=== PATIENT | female | born 1970 | race Caucasian/White ===

== ENCOUNTER 2018-03-27 10:59 | Day surgery (SDC) | payer OTHER ==
[2018-03-27] MEDS: BUPIVACAINE 0.25%/EPI (SDV) 30 ML INJ INJ
[2018-03-27] MEDS ORDERED: MIDAZOLAM 1 MG/ML 2 ML INJ IV (13:00)
[2018-03-27] MEDS ORDERED: FENTAnyl 50 MCG/ML VIAL IV ×3 (13:00)
[2018-03-27] MEDS ORDERED: LABETALOL HCL 20MG INJ IV (13:00)
[2018-03-27] MEDS ORDERED: DIPHENHYDRAMINE 50 MG INJ IV (13:00)
[2018-03-27] MEDS ORDERED: METOCLOPRAMIDE 10 MG INJ IV (13:00)
[2018-03-27] MEDS ORDERED: EPHEDrine SULFATE 50 MG/5 ML SYG IV (13:00)
[2018-03-27] MEDS ORDERED: OXYCODONE/ACETAMINOPHEN (5/325) TAB PO ×2 (13:00)
[2018-03-27] MEDS ORDERED: hydrALAzine 20 MG INJ IV (13:00)
[2018-03-27] MEDS: CEFAZOLIN 1 GM/50 ML (PMX) 50 ML IVPB (13:06)
[2018-03-27] MEDS: SOD CHLORIDE 0.9% 1,000 ML IV (13:06)
[2018-03-27] MEDS ORDERED: NEOSTIGMINE 3 MG/3 ML SYRINGE ×2 (13:09→13:56)
[2018-03-27] MEDS ORDERED: SUCCINYLCHOLINE CHLORIDE 100 MG/5 ML SYG IV (13:09)
[2018-03-27] MEDS ORDERED: METOCLOPRAMIDE 10 MG INJ (13:09)
[2018-03-27] MEDS ORDERED: LIDOCAINE 2% (SDV) 5 ML INJ (13:09)
[2018-03-27] MEDS ORDERED: ONDANSETRON 4 MG INJ (13:09)
[2018-03-27] MEDS ORDERED: MEPERIDINE 100 MG INJ (13:09)
[2018-03-27] MEDS ORDERED: ROCURONIUM 50 MG INJ (13:09)
[2018-03-27] MEDS ORDERED: GLYCOPYRROLATE 0.4 MG INJ ×2 (13:09→13:56)
[2018-03-27] MEDS ORDERED: PROPOFOL 20 ML (13:09)
[2018-03-27] MEDS ORDERED: CEFAZOLIN 1 GM INJ (13:09)
[2018-03-27] MEDS ORDERED: BUPIVACAINE 0.25%/EPI (MDV) 50 ML VIAL INJ (13:18)
[2018-03-27] MEDS ORDERED: ATROPINE 1 MG/10 ML SYRINGE (13:56)
[2018-03-27] MEDS ORDERED: ONDANSETRON 4 MG INJ IV (14:30)
[2018-03-27] MEDS ORDERED: IBUPROFEN 600 MG TAB PO (14:30)
[2018-03-27] MEDS ORDERED: traMADol 50 MG TAB PO (14:30)
[2018-03-27] MEDS ORDERED: KETOROLAC 30 MG INJ IV (14:30)
[2018-03-27] MEDS: ONDANSETRON 4 MG INJ IV (15:07)
[2018-03-27] MEDS: HYDROmorphONE 1 MG/5 ML IV SYRINGE IV ×2 (15:08→15:17)
[2018-03-27] MEDS: MEPERIDINE 25 MG INJ IV (15:26)
== END 2018-03-27 17:38 | disposition home or self-care (01) ==
LOC: SDS 10:59
DX: K80.10 Calculus of gallbladder with chronic cholecystitis without obstruction (principal); E66.9 Obesity, unspecified; M35.00 Sjogren syndrome, unspecified
CPT/HCPCS: 47562; 84703; 88304

== ENCOUNTER 2018-04-02 10:08 | Emergency (ER) | payer OTHER ==
[2018-04-02 12:05] LABS: ADD MAN DIFF? NO
[2018-04-02 12:09] LABS: BASOPHILS % 0.5 % (0.0-2.0); EOSINOPHILS # 0.2 10^3/ul (0.0-0.5); EOSINOPHILS % 2.2 % (0.0-7.0); HEMOGLOBIN 13.9 g/dl (12.0-16.0); LYMPHOCYTES # 2.1 10^3/ul (0.8-2.9); LYMPHOCYTES % 25.8 % (15.0-51.0); MEAN CORPUSCULAR HEMOGLOBIN 30.2 pg (29.0-33.0); MEAN CORPUSCULAR HGB CONC 33.1 g/dl (32.0-37.0); MEAN CORPUSCULAR VOLUME 91.1 fl (82.0-101.0); MEAN PLATELET VOLUME 10.6 fl (7.4-10.4); MONOCYTE # 0.5 10^3/ul (0.3-0.9); MONOCYTES % 5.9 % (0.0-11.0); NEUTROPHIL # 5.3 10^3/ul (1.6-7.5); NEUTROPHILS % 65.2 % (39.0-77.0); PLATELET COUNT 366 10^3/UL (140-415); RED BLOOD COUNT 4.61 10^6/ul (4.20-5.40); RED CELL DISTRIBUTION WIDTH 13.2 % (11.5-14.5)
[2018-04-02 12:09] LABS: WHITE BLOOD COUNT 8.1 10^3/ul (4.8-10.8)
[2018-04-02 12:29] LABS: ALANINE AMINOTRANSFERASE 38 IU/L (13-69); ALBUMIN 4.2 g/dl (3.3-4.9); ALBUMIN/GLOBULIN RATIO 1.16; ALKALINE PHOSPHATASE 114 IU/L (42-121); ANION GAP 11 (8-16); ASPARTATE AMINO TRANSFERASE 24 IU/L (15-46); BILIRUBIN,INDIRECT 0.2 mg/dl (0-1.1); BILIRUBIN,TOTAL 0.2 mg/dl (0.2-1.3); BLOOD UREA NITROGEN 8 mg/dl (7-20); CALCIUM 9.4 mg/dl (8.4-10.2); CARBON DIOXIDE 27 mmol/L (21-31); CHLORIDE 108 mmol/L (97-110); CREATININE 0.59 mg/dl (0.44-1.00); GLUCOSE 120 mg/dl (70-220); LIPASE 159 U/L (23-300); POTASSIUM 3.9 mmol/L (3.5-5.1); SODIUM 142 mmol/L (135-144); TOTAL PROTEIN 7.8 g/dl (6.1-8.1)
[2018-04-02 12:41] LABS: B-TYPE NATRIURETIC PEPTIDE 20 PG/ML (0-125); TROPONIN-I < 0.010 ng/ml (0.000-0.120)
[2018-04-02 13:43] LABS: ADD UMIC YES; UR ASCORBIC ACID NEGATIVE (NEGATIVE); UR BACTERIA FEW /HPF (NONE SEEN); UR BILIRUBIN (Dip) NEGATIVE (NEGATIVE); UR BLOOD (Dip) 3+ mg/dL (NEGATIVE); UR CLARITY CLEAR (CLEAR); UR COLOR YELLOW (YELLOW); UR GLUCOSE (Dip) NEGATIVE (NEGATIVE); UR KETONES (Dip) NEGATIVE (NEGATIVE); UR LEUKOCYTE ESTERASE (Dip) NEGATIVE Leu/ul (NEGATIVE); UR NITRITE (Dip) NEGATIVE (NEGATIVE); UR RBC 80 /HPF (0-5); UR SPECIFIC GRAVITY (Dip) 1.005 (1.003-1.030); UR TOTAL PROTEIN (Dip) NEGATIVE (NEGATIVE); UR UROBILINOGEN (Dip) NEGATIVE (NEGATIVE); UR WBC 55 /HPF (0-5)
[2018-04-02] MEDS: SOD CHLORIDE 0.9% 100 ML (14:04)
[2018-04-02] MEDS: IOHEXOL 100 ML (14:05)
== END 2018-04-02 15:12 | disposition home or self-care (01) ==
LOC: FTE 10:08
DX: K59.00 Constipation, unspecified (principal); R06.02 Shortness of breath; Z90.49 Acquired absence of other specified parts of digestive tract
CPT/HCPCS: 36415; 71275; 74176; 80053; 81001; 81025; 83690; 83880; 84484; 85025; 93005; 99285-25